=== PATIENT | female | born 1990 | race Caucasian/White ===

== ENCOUNTER 2020-10-23 18:05 | Emergency (ER) | payer MEDICAID, SELFPAY ==
[2020-10-23 18:55] VITALS: BP 112/62; PULSE 72; RESP 18; TEMP 36.9; O2SAT 99; BMI 27.4
[2020-10-23 20:02] LABS: Influenza A PCR NEGATIVE (Negative); Influenza B PCR NEGATIVE (Negative); SARS COV2 PCR INHOUSE NEGATIVE (Negative)
[2020-10-23 20:04] LABS: Resp Syncy Virus RNA Qual PCR POSITIVE (Negative)
--- NOTE | 2020-10-23 21:10 | ED.URI ---
HPI - URI/Sore Throat General Chief Complaint: Upper Respiratory Symptoms Stated Complaint: covid exposure Time Seen by Provider: 10/23/20 21:10 Source: patient Mode of arrival: ambulatory History of Present Illness HPI Narrative: 30-year-old female no significant past medical history presenting to the ED complaining sore throat generalized fatigue requesting COVID-19 testing. Presenting to ED with 3 children, 1 of which has URI symptoms. Patient denies fever, cough, CP/SOB, abdominal pain, nausea/vomiting, recent travel, rash, COVID-19 exposure Related Data Allergies Allergy/AdvReac Type Severity Reaction Status Date / Time latex [LATEX] Allergy Mild RASH Verified 10/23/20 18:54 Latex Allergy Unknown rash Uncoded 06/26/15 00:00 Review of Systems Review of Systems: Constitutional: No Fever, No Chills, +fatigue ENT/Mouth: No Ear Pain, No Nasal Congestion, No Sinus Pain, No Hoarseness, + sore throat, No Rhinorrhea Cardiovascular: No Chest Pain, No SOB Respiratory: No Cough, No Sputum, No Wheezing Gastrointestinal: No Nausea, No Vomiting, No Abdominal pain Musculoskeletal: No joint pain, + Myalgias Skin: No Skin Lesions, No rash Neuro: No Weakness Yes all other systems are reviewed and are negative [facility] Past Medical History Attestation statement: The following information was validated with the patient. Social History Social History Advance Directives: No Advance Directives Information Provided: Yes Patient : No Physical Exam Vital Signs: Vital Signs: Last Vital Signs Temp 98.4 F 10/23/20 18:55 Pulse 72 10/23/20 18:55 Resp 18 10/23/20 18:55 BP 112/62 10/23/20 18:55 Pulse Ox 99 10/23/20 18:55 Body Mass Index 27.4 Const: General: cooperative and healthy appearing Orientation/consciousness: patient oriented x3 Limitations: no limitations HENMT: Head: Yes normal to inspection Ears: hearing grossly normal bilaterally, external ears normal and TM's normal bilaterally General nose exam: Normal external nose present Face and sinus: Yes normal facial exam Mouth: Normal oral and palatal mucosa present and oropharynx normal Throat: Yes posterior oropharynx normal, Yes tonsils normal, Yes uvula midline, No peritonsillar mass, No uvula laterally displaced and No uvular edema Eyes: General: appearance normal, both eyes and all related structures EOM: EOMs intact bilaterally Neck: Neck: Yes normal visual inspection Resp: Effort & Inspection: normal respiratory effort Auscultation: clear to auscultation bilaterally, no rales, no rhonchi and no wheezes Cardio: Rate: regular rate Heart sounds: S1 normal heart sound present and S2 normal heart sound present GI: Inspection: Yes normal to inspection Skin: Rashes: no rashes Wounds: no wounds Neuro: General: patient oriented x3 Gait exam (Neuro): Normal gait present Extrem: General: Yes normal to inspection Course Course Course Narrative: -RSV positive MDM - URI/Sore Throat MDM Narrative Medical decision making narrative: 42-year-old female presenting to the ED complaining of cough, body aches/myalgias, chills, SOB, chest discomfort when coughing, headaches x2 days. On exam VSS, NAD/well-appearing, lungs CTA. Concern for viral syndrome/COVID-19. Plan: COVID-19/RSV/influenza testing Lab Data Labs: Lab Results 10/23/20 Range/Units 19:05 Coronavirus (PCR) NEGATIVE (Negative) Influenza Type A (PCR) NEGATIVE (Negative) Influenza Type B (PCR) NEGATIVE (Negative) RSV RNA Qual (PCR) POSITIVE A (Negative) Discharge Plan Discharge Clinical Impression: Respiratory syncytial virus (RSV) infection Patient Disposition: Home, Self-Care Instructions: Respiratory Syncytial Virus (ED) Additional Instructions: You are RSV positive, this is the cause of the common cold, you tested negative for the flu and COVID-19 It is important for you to rest, stay hydrated, take Tylenol and Motrin at home as needed Please follow-up with her doctor If symptoms persist or worsen, become unbearable, constant worsening shortness breath or chest pain please return to the ED Referrals: Fred Hatfield MD [Primary Care Provider] - 2 days
== END 2020-10-23 22:08 | disposition home or self-care (01) ==
PROVIDERS: Emergency Provider Emergency Medicine; PCP Internal Medicine
DX: J02.9 Acute pharyngitis, unspecified (principal); B97.4 Respiratory syncytial virus as the cause of diseases classified elsewhere; Z20.822 Contact with and (suspected) exposure to COVID-19; M79.10 Myalgia, unspecified site
CPT/HCPCS: 0241U; 36415; 99282; 99283

== ENCOUNTER 2021-01-19 13:06 | Emergency (ER) | payer MEDICAID, SELFPAY ==
--- NOTE | ~2021-01-19 | US_ITS ---
EXAMINATION: US PELVIS CLINICAL INFORMATION: Patient reports although the hCG level is pending at the time of this dictation. Last menstrual period 12/06/2020. Menstrual gestational age 6 weeks 2 days with estimated due date 09/12/2021. COMPARISON: None TECHNIQUE: Transabdominal and transvaginal imaging of the pelvis was performed. FINDINGS: A gravid uterus is identified. A single living intrauterine gestation is identified with a crown-rump length of 2.9 mm corresponding to 6 weeks 0 days. This is concordant with the age by dates of 6 weeks 2 days for an EDC of 09/12/2021. There is a normal heart rate of 126 beats per minute. The right and left ovaries are of normal size and echogenicity measuring 5.0 x 2.9 x 3.5 cm and 2.4 x 1.5 x 2.1 cm respectively. There is no pelvic free fluid. US/US pelvic and transvaginal IMPRESSION: Normal single living intrauterine gestation.
[2021-01-19 13:12] VITALS: BP 124/77; PULSE 99; RESP 18; TEMP 36.6; O2SAT 100; BMI 34.3
--- NOTE | 2021-01-19 15:53 | ED.GENADULT ---
HPI - General Adult General Chief complaint: Vaginal Bleeding Stated complaint: vaginal bleeding quest of misscarriage Time Seen by Provider: 01/19/21 15:09 Source: patient Mode of arrival: ambulatory History of Present Illness HPI narrative: 30-year-old female presenting to the ED complaining of lower abdominal cramping and vaginal spotting since this morning. Admits to positive at home test 3 weeks ago. Reports associated nausea and lightheadedness. Denies any care states appointment is on 01/28. Denies fever, chills, vaginal discharge, flank pain, diarrhea/constipation Onset (ago): day(s) Related Data Allergies Allergy/AdvReac Type Severity Reaction Status Date / Time latex [LATEX] Allergy Mild RASH Verified 10/23/20 18:54 Latex Allergy Unknown rash Uncoded 06/26/15 00:00 Review of Systems Review of Systems: Constitutional: No Fever, No Chills, No Fatigue, No Malaise ENT/Mouth: No Ear Pain, No Nasal Congestion, No sore throat Eyes: No Eye Pain, No Swelling, No Redness, No Discharge Cardiovascular: No Chest Pain, No SOB, No Edema, No Palpitations Respiratory: No Cough, No Dyspnea Gastrointestinal: + Nausea, No Vomiting, No Diarrhea, No Constipation, No Abdominal pain Genitourinary: + vaginal spotting, No Dysuria, No Urinary Frequency, No Hematuria,No Flank Pain, No Urinary Flow Changes, No Hesitancy Musculoskeletal: No joint pain, No Myalgias, No Joint Swelling Skin: No Skin Lesions, No rash Neuro: No Weakness, No Numbness, + lightheadedness, No Headache Yes all other systems are reviewed and are negative [facility] Past Medical History Attestation statement: The following information was validated with the patient. Social History Social History Advance Directives: No Advance Directives Information Provided: No Physical Exam Vital Signs: Vital Signs: Last Vital Signs Temp 98 F 01/19/21 13:12 Pulse 99 01/19/21 13:12 Resp 18 01/19/21 13:12 BP 124/77 01/19/21 13:12 Pulse Ox 100 01/19/21 13:12 Body Mass Index 34.3 Const: General: cooperative, healthy appearing and no acute distress Orientation/consciousness: patient oriented x3 Limitations: no limitations HENMT: Head: Yes normal to inspection Ears: hearing grossly normal bilaterally General nose exam: Normal external nose present Face and sinus: Yes normal facial exam Eyes: General: appearance normal, both eyes and all related structures EOM: EOMs intact bilaterally Neck: Neck: Yes normal visual inspection and Yes no meningeal signs Resp: Effort & Inspection: normal respiratory effort and no respiratory distress Auscultation: clear to auscultation bilaterally Cardio: Rate: regular rate Heart sounds: S1 normal heart sound present and S2 normal heart sound present GI: Inspection: Yes normal to inspection Palpation (GI): Soft to palpation, nontender, no guarding and not rigid : Other: On pelvic scant vaginal bleeding noted, no active hemorrhage, no clots, no CMT. OS closed. + right adnexal tenderness General: Yes no CVA tenderness Back/Spine/Pelvis: Back: no CVA tenderness Skin: Rashes: no rashes Wounds: no wounds Neuro: General: patient oriented x3 and no meningeal signs Gait exam (Neuro): Normal gait present Extrem: General: Yes normal to inspection Course Course Course Narrative: -1700--UA with blood. Urine positive. --ED care transferred to EMANUEL Mendez pending remaining labs and ultrasound. Dispo for results Medical Decision Making [facility] Narrative Medical decision making narrative: 30-year-old female presenting to the ED complaining of lower abdominal cramping and vaginal spotting since this morning. On exam vital signs stable, NAD/nontoxic, abdomen soft/nontender, no CVAT. On pelvic exam and vaginal bleeding noted, no active hemorrhage. No CMT. Right adnexal tenderness. Not exam not consistent with PID. Concern for normal vs threatened / missed vs ectopic. Rule out UTI. Lower concern for appendicitis /diverticulitis/ renal stone Plan: Labs, UA, STI testing, pelvic ultrasound Medical Records Medical records reviewed: Yes I reviewed the patient's medical records. Lab Data Lab results reviewed: Yes I reviewed the patient's lab results. Labs: Lab Results 01/19/21 01/19/21 Range/Units 16:33 16:33 Urine Color STRAW Urine Appearance HAZY Urine pH 7.0 (5.0-8.0) Ur Specific [place] <= 1.005 (1.005-1.025) Urine Protein NEG (NEG-TRACE) MG/DL Urine Glucose (UA) NEG (NEG) MG/DL Urine Ketones NEG (NEG) MG/DL Urine Blood 2+ H (NEG) Urine Nitrite NEG (NEG) Ur Leukocyte Esterase NEG (NEG) Urine RBC 0-2 (0) /HPF Urine WBC 0-2 (0-4) /HPF Ur Squamous Epith Cells 1+ /LPF Urine Bacteria TRACE /LPF Urine Mucus TRACE /LPF Urine Test POSITIVE H (NEGATIVE) Discharge Plan Discharge Clinical Impression: Bleeding in early Patient Disposition: Still a Patient
[2021-01-19 16:41] LABS: Appearance Urine HAZY; Color Urine STRAW; Glucose Urine UA NEG (NEG); Leukocyte Esterase Urine NEG (NEG); Nitrite Urine NEG (NEG); Specific Gravity - Urine <= 1.005 (1.005-1.025); UACC Culture Trigger NO; Urine Blood 2+ (NEG); Urine Ketones NEG (NEG); Urine Protein NEG (NEG-TRACE)
[2021-01-19 16:46] LABS: UPreg QC Valid YES; Urine Pregnancy POSITIVE (NEGATIVE)
[2021-01-19 16:50] LABS: Bacteria Urine TRACE /LPF; Mucus Urine TRACE /LPF; RBC Urine 0-2 /HPF (0); Squamous Epithelial Cell Urine 1+ /LPF; WBC Urine 0-2 /HPF (0-4)
[2021-01-19] MEDS: 0.9 % Sodium Chloride 1,000 ML 999 ML IVCONT (18:05)
[2021-01-19 18:09] LABS: MANUAL DIFF FLAG NO
[2021-01-19 18:10] LABS: Basophils Percent Auto 0.3 % (0-2); Eosinophils Absolute Auto 0.2 X10*3/uL (0.0-0.4); Eosinophils Percent Auto 1.7 % (0-4); Hematocrit 37.6 % (37.0-47.0); Hemoglobin 12.7 g/dl (12.0-16.0); Imm Gran Abs Auto 0.03 X10*3/uL (0.00-0.03); Imm Gran Pct Auto 0.3 % (0.0-0.4); Lymphocytes Absolute Auto 2.4 X10*3/uL (1.2-4.9); Mean Corpuscular HGB Conc 33.8 g/dl (31.0-35.0); Mean Corpuscular Hemoglobin 30.8 pg (27.0-33.0); Mean Corpuscular Volume 91.3 fL (80.0-98.0); Mean Platelet Volume 11.3 fL (9.4-12.3); Monocytes Absolute Auto 0.5 X10*3/uL (0.1-1.2); Neutrophils Percent Auto 68.7 % (45-73); Platelet Count 242 X10*3/uL (160-400); Red Blood Count 4.12 X10*6/uL (4.20-5.50); Red Cell Distribution Width 12.6 % (11.0-16.0); White Blood Count 10.1 X10*3/uL (4.8-10.8)
[2021-01-19 18:26] LABS: Alanine Aminotransferase 13 U/L (0-31); Albumin Level 3.5 g/dL (3.5-5.0); Alkaline Phosphatase 70 U/L (39-117); Anion Gap 9 (12-20); Aspartate Amino Transferase 11 U/L (5-31); Bilirubin Direct < 0.2 mg/dL (0.0-0.5); Bilirubin Total 0.2 mg/dL (0.0-1.0); Blood Urea Nitrogen 6 mg/dL (9-16); Calcium 8.4 mg/dL (8.4-10.2); Carbon Dioxide 24 mmol/L (22-29); Chloride 109 mmol/L (96-108); Creatinine Clr Calc Pharmacy 128.2; Estimated Glomerular Filt Rate > 60; Glucose Random 91 mg/dL (60-115); Lipase 31 U/L (8-78); Potassium 3.9 mmol/L (3.3-5.1); Sodium 138 mmol/L (135-145); Total Protein 6.5 g/dL (6.5-8.0)
[2021-01-19 18:49] LABS: HCG Quantitative 18037 mIU/mL
[2021-01-19 19:26] VITALS: BP 121/57; PULSE 81; RESP 16; TEMP 36.9; O2SAT 100
[2021-01-20 09:37] LABS: BV Int Neg Control Negative (Negative); BV Int Pos Control Positive (Positive)
[2021-01-20 09:42] LABS: CT PCR NOT DETECTED (Not Detect.); NG PCR NOT DETECTED (Not Detect.)
== END 2021-01-19 19:36 | disposition home or self-care (01) ==
PROVIDERS: Physician Assistant; Emergency Provider Emergency Medicine; PCP Internal Medicine
DX: O20.9 Hemorrhage in early pregnancy, unspecified (principal); O23.591 Infection of other part of genital tract in pregnancy, first trimester; Z3A.01 Less than 8 weeks gestation of pregnancy
CPT/HCPCS: 36415; 76830; 76856; 80048; 80076; 81001; 81025; 83690; 83735; 84702; 85025; 86900; 86901; 87480; 87491; 87510; 87591; 87660; 96360; 99284

== ENCOUNTER 2023-05-03 14:02 | Outpatient (REF) | payer MEDICAID, SELFPAY ==
[2023-05-03 14:50] LABS: Basophils Percent Auto 0.3 % (0-2); Eosinophils Absolute Auto 0.1 X10*3/uL (0.0-0.4); Eosinophils Percent Auto 1.8 % (0-4); Hematocrit 40.7 % (37.0-47.0); Imm Gran Abs Auto 0.02 X10*3/uL (0.00-0.03); Imm Gran Pct Auto 0.3 % (0.0-0.4); Lymphocytes Absolute Auto 2.9 X10*3/uL (1.2-4.9); MANUAL DIFF FLAG SCAN; Mean Corpuscular HGB Conc 34.4 g/dl (31.0-35.0); Mean Corpuscular Volume 87.3 fL (80.0-98.0); Mean Platelet Volume 12.2 fL (9.4-12.3); Monocytes Absolute Auto 0.5 X10*3/uL (0.1-1.2); Monocytes Percent Auto 5.9 % (2-11); Neutrophils Absolute Auto 4.4 x10*3/uL (2.0-8.3); Neutrophils Percent Auto 54.7 % (45-73); Platelet Count 264 X10*3/uL (160-400); Red Blood Count 4.66 X10*6/uL (4.20-5.50); Red Cell Distribution Width 12.4 % (11.0-16.0); SCAN SMEAR FLAG 1; White Blood Count 7.9 X10*3/uL (4.8-10.8)
[2023-05-03 15:26] LABS: SLIDE REVIEW VERIFIED
[2023-05-03 15:47] LABS: Alanine Aminotransferase 18 U/L (0-31); Albumin Level 4.1 g/dL (3.5-5.0); Alkaline Phosphatase 68 U/L (39-117); Anion Gap 11 (12-20); Aspartate Amino Transferase 16 U/L (5-31); Bilirubin Total 0.2 mg/dL (0.0-1.0); Blood Urea Nitrogen 10 mg/dL (9-16); Calcium 9.2 mg/dL (8.4-10.2); Carbon Dioxide 24 mmol/L (22-29); Chloride 110 mmol/L (96-108); Cholesterol 109 mg/dL (<200); Estimated Glomerular Filt Rate > 60; Glucose Random 67 mg/dL (60-115); HDL Cholesterol 26 mg/dL (>40); LDL Cholesterol Calculated 64 mg/dL (<100); Magnesium 1.9 mg/dL (1.6-2.6); Potassium 3.1 mmol/L (3.3-5.1); Sodium 142 mmol/L (135-145); Triglycerides 97 mg/dL (<150)
[2023-05-03 15:50] LABS: Vitamin D 25-OH Total 13.9 ng/mL (>30)
[2023-05-06 02:18] LABS: TS Negative Control Passed; TS Panel A 0; TS Panel B 0; TS Positive Control Passed; TSpotTB Negative (Negative)
== END 2023-05-03 14:03 | disposition home or self-care (01) ==
LOC: HO.CHCLDS 14:02
PROVIDERS: Visit Provider Family Medicine
DX: Z11.1 Encounter for screening for respiratory tuberculosis (principal); E66.9 Obesity, unspecified
CPT/HCPCS: 36415; 80053; 80061; 82306; 83735; 85025; 86481

== ENCOUNTER 2024-01-20 15:40 | Outpatient (REF) | payer MEDICAID, SELFPAY ==
[2024-01-21 04:20] LABS: CT PCR NOT DETECTED (Not Detect.); NG PCR NOT DETECTED (Not Detect.)
== END 2024-01-20 15:41 | disposition home or self-care (01) ==
LOC: HO.CHCLNP 15:40
PROVIDERS: Visit Provider Family Medicine
DX: A64 Unspecified sexually transmitted disease (principal)
CPT/HCPCS: 87491; 87591

== ENCOUNTER 2024-01-25 08:47 | Outpatient (REF) | payer MEDICAID, SELFPAY ==
[2024-01-25 14:18] LABS: MANUAL DIFF FLAG NO
[2024-01-25 14:44] LABS: Basophils Percent Auto 0.2 % (0-2); Eosinophils Absolute Auto 0.1 X10*3/uL (0.0-0.4); Eosinophils Percent Auto 1.4 % (0-4); Hematocrit 37.2 % (37.0-47.0); Hemoglobin 12.6 g/dl (12.0-16.0); Imm Gran Abs Auto 0.02 X10*3/uL (0.00-0.03); Imm Gran Pct Auto 0.2 % (0.0-0.4); Lymphocytes Absolute Auto 1.9 X10*3/uL (1.2-4.9); Lymphocytes Percent Auto 23.5 % (20-40); Mean Corpuscular HGB Conc 33.9 g/dl (31.0-35.0); Mean Corpuscular Hemoglobin 30.8 pg (27.0-33.0); Monocytes Absolute Auto 0.4 X10*3/uL (0.1-1.2); Monocytes Percent Auto 4.5 % (2-11); Neutrophils Absolute Auto 5.7 x10*3/uL (2.0-8.3); Neutrophils Percent Auto 70.2 % (45-73); Platelet Count 208 X10*3/uL (160-400); Red Blood Count 4.09 X10*6/uL (4.20-5.50); Red Cell Distribution Width 12.9 % (11.0-16.0); White Blood Count 8.1 X10*3/uL (4.8-10.8)
[2024-01-25 16:00] LABS: Alanine Aminotransferase 12 U/L (0-31); Albumin Level 3.5 g/dL (3.5-5.0); Anion Gap 11 (12-20); Aspartate Amino Transferase 23 U/L (5-31); Bilirubin Total 0.3 mg/dL (0.0-1.0); Blood Urea Nitrogen 7 mg/dL (9-16); Calcium 8.6 mg/dL (8.4-10.2); Carbon Dioxide 23 mmol/L (22-29); Chloride 109 mmol/L (96-108); Cholesterol 129 mg/dL (<200); Estimated Glomerular Filt Rate > 60; Glucose Random 67 mg/dL (60-115); HDL Cholesterol 43 mg/dL (>40); LDL Cholesterol Calculated 74 mg/dL (<100); Potassium 3.6 mmol/L (3.3-5.1); Sodium 139 mmol/L (135-145); Total Protein 6.8 g/dL (6.5-8.0); Triglycerides 64 mg/dL (<150)
[2024-01-25 17:22] LABS: Alkaline Phosphatase 53 U/L (39-117)
[2024-01-26 03:38] LABS: Syphilis Screen Nonreactive (Nonreactive)
[2024-01-26 04:17] LABS: HIV AB/AG Nonreactive (Nonreactive); HIV Num 1 0.07 S/CO (0.00-0.99); ~HepC Num1 0.14 S/CO (0.00-0.79); ~Hepatitis C Antibody Nonreactive (Nonreactive)
== END 2024-01-25 08:48 | disposition home or self-care (01) ==
LOC: HO.CHCLDS 08:47
PROVIDERS: Visit Provider Family Medicine
DX: E66.811 Obesity, class 1 (principal); Z68.34 Body mass index [BMI] 34.0-34.9, adult; A64 Unspecified sexually transmitted disease
CPT/HCPCS: 36415; 80053; 80061; 85025; 86780; 86803; 87389

== ENCOUNTER 2024-01-26 11:26 | Outpatient (REF) | payer MEDICAID, SELFPAY ==
[2024-01-28 11:55] LABS: Bacterial Vaginosis PCR POSITIVE (Negative); Candida Group PCR DETECTED (Not Detect); Candida glab krusei PCR NOT DETECTED (Not Detect); Trichomonas vaginalis PCR NOT DETECTED (Not Detect)
[2024-01-28 14:32] LABS: CT PCR NOT DETECTED (Not Detect.); NG PCR NOT DETECTED (Not Detect.)
== END 2024-01-26 11:27 | disposition home or self-care (01) ==
LOC: HO.LNP 11:26
PROVIDERS: Visit Provider Internal Medicine
DX: N30.01 Acute cystitis with hematuria (principal); N91.0 Primary amenorrhea
CPT/HCPCS: 0352U; 87086; 87491; 87591

== ENCOUNTER 2024-01-27 11:40 | Outpatient (REF) | payer MEDICAID, SELFPAY ==
[2024-01-27 14:11] LABS: MANUAL DIFF FLAG NO
[2024-01-27 14:18] LABS: Basophils Percent Auto 0.3 % (0-2); Eosinophils Absolute Auto 0.1 X10*3/uL (0.0-0.4); Eosinophils Percent Auto 1.5 % (0-4); Hematocrit 37.2 % (37.0-47.0); Hemoglobin 12.7 g/dl (12.0-16.0); Imm Gran Abs Auto 0.03 X10*3/uL (0.00-0.03); Imm Gran Pct Auto 0.3 % (0.0-0.4); Lymphocytes Absolute Auto 1.8 X10*3/uL (1.2-4.9); Lymphocytes Percent Auto 20.9 % (20-40); Mean Corpuscular HGB Conc 34.1 g/dl (31.0-35.0); Mean Corpuscular Hemoglobin 30.5 pg (27.0-33.0); Mean Corpuscular Volume 89.4 fL (80.0-98.0); Monocytes Absolute Auto 0.5 X10*3/uL (0.1-1.2); Neutrophils Absolute Auto 6.1 x10*3/uL (2.0-8.3); Platelet Count 219 X10*3/uL (160-400); Red Blood Count 4.16 X10*6/uL (4.20-5.50); Red Cell Distribution Width 12.7 % (11.0-16.0); White Blood Count 8.7 X10*3/uL (4.8-10.8)
[2024-01-27 14:52] LABS: HCG Quantitative < 2 mIU/mL; TSH reflex Free T4 0.99 uIU/mL (0.32-4.0)
[2024-01-27 15:10] LABS: Erythrocyte Sedimentation Rate 19 MM/HR (0-20)
== END 2024-01-27 11:41 | disposition home or self-care (01) ==
LOC: HO.CHCLDS 11:40
PROVIDERS: Visit Provider Internal Medicine
DX: N30.01 Acute cystitis with hematuria (principal); N91.0 Primary amenorrhea
CPT/HCPCS: 36415; 84443; 84702; 85025; 85652; 87491; 87591

== ENCOUNTER 2024-02-01 14:35 | Outpatient (REF) | payer MEDICAID, SELFPAY ==
[2024-02-06 22:08] LABS: C. trachomatis RNA TMA Not Detected (Not Detected); N. gonorrhoeae RNA TMA Not Detected (Not Detected); Trichomonas (NAAT) Not Detected (Not Detected)
[2024-02-10 13:40] LABS: HPV 16,18/45 See PAP report
== END 2024-02-01 14:36 | disposition home or self-care (01) ==
LOC: HO.LNP 14:35
PROVIDERS: Visit Provider Family Medicine
DX: Z12.4 Encounter for screening for malignant neoplasm of cervix (principal)
CPT/HCPCS: 87491; 87591; 87624; 87661; 88175

== ENCOUNTER 2024-10-09 15:15 | Outpatient (REF) | payer MEDICAID, SELFPAY ==
--- OUTSIDE RECORDS SUMMARY | 2024-10-09 15:19 | XMS_ITS | Encounter Summary ---
Author Organization [employer] Address [address] [place] [address] Care Team Providers Care Physician Allergist Immunologist Name Role Phone Nu Carlisle MD Primary Care Provider [phone] Encounter Details Date Type Department Care Team (Late st Contact Info) Description 07/04/2024 Orders Only [facility] MED & PEDS [address] [place] [id number] Mara Coles Social History Tobacco Use Types Packs/Day Years Used Date Smoking Tobacco: Unknown Depression Answer Date Recorded Patient Health Questionnaire-9 Score 12 05/03/2023 Patient Health Questionnaire-9 Score 12 05/03/2023 Last PHQ-9: Questionnaire Data Not on file 0 05/03/2023 Housing Stability Answer Date Recorded What is your housing situation today? I have giancarlo rosales 06/24/[address] you li ve. Do you have problems with any of the following? None of the above 06/24/2023 Food Insecurity Answer Date Recorded Within the past 12 months, y ou worried that your food would run out before you got money to buy more: Never True 06/24/2023 Within the past 12 months,th e food you bought just didn't last and you didn't have enough money to get more: Never True Transportation Answer Date Recorded In the past 12 months, has l ack of transportation kept you from medical appts, meetings, work or from getting things needed for daily living? No 06/24/2023 Utilities Answer Date Recorded In the past 12 months, has t he electric, gas, oil or water company threatened to shut off services in your home? No 06/24/2023 Depression Answer Date Recorded Patient Health Questionnaire-2 Score 2 05/03/2023 Comments No Sex and Gender Information Value Date Recorded Sex Assigned at Female 01/05/2022 10:39 AM EDT Legal Sex Female 10:39 AM EDT Gender Identity Female 01/05/2022 10:39 AM EDT Sexual Orientation Straight 01/05/2022 10 :39 AM EDT documented as of this encounter Plan of Treatment Not on file documented as of this encounter Procedures Procedure Name Priority Date/Time Associated Diagnosis Comments HPV MRNA E6/E7 REFLEX TO HPV 16, 18/45 Routine 02/01/2024 12:00 AM EST documented in this encounter Results * HPV mRNA E6/E7 w/Reflex to HPV Genotypes 16, 18/45 (02/01/2024 12:00 AM EST) us Historical Provider LAB CYTOLOGY ORDERABLES F inal Result [facility] [address] [place] [address] [phone] documented in this encounter Visit Diagnoses Not on filedocumented in this encounter Additional Health Concerns Assessment Noted Time PHQ-9 Depression Total Score: 12 024 10:46 AM EST documented as of this encounter Care Teams Physician Allergist Immunologist Relationship Specialty Start Date End Date Nu Carlisle MD [address] [place] [address] PCP - General Family Medicine 12/31/20 documented as of this encounter
[2024-10-09 16:14] LABS: MANUAL DIFF FLAG NO
[2024-10-09 16:26] LABS: Hematocrit 37.1 % (37.0-47.0); Hemoglobin 12.6 g/dl (12.0-16.0); Imm Gran Abs Auto 0.02 X10*3/uL (0.00-0.03); Imm Gran Pct Auto 0.2 % (0.0-0.4); Lymphocytes Absolute Auto 2.4 X10*3/uL (1.2-4.9); Mean Corpuscular HGB Conc 34.0 g/dl (31.0-35.0); Mean Corpuscular Hemoglobin 30.8 pg (27.0-33.0); Mean Corpuscular Volume 90.7 fL (80.0-98.0); NRBC Abs Auto 0.000 X10*3/uL (0.0-0.012); NRBC Pct Auto 0.0 /100WBC (0.0-0.2); Platelet Count 220 X10*3/uL (160-400); Red Blood Count 4.09 X10*6/uL (4.20-5.50); White Blood Count 9.1 X10*3/uL (4.8-10.8)
[2024-10-10 08:35] LABS: HIV Num 1 0.06 S/CO (0.00-0.99)
== END 2024-10-09 15:16 | disposition home or self-care (01) ==
LOC: HO.HHCL 15:15
PROVIDERS: PCP Internal Medicine; Visit Provider Internal Medicine
DX: Z11.4 Encounter for screening for human immunodeficiency virus [HIV] (principal); Z11.3 Encounter for screening for infections with a predominantly sexual mode of transmission; N91.0 Primary amenorrhea; R39.9 Unspecified symptoms and signs involving the genitourinary system
CPT/HCPCS: 36415; 84702; 85025; 86592; 87086; 87088; 87186; 87389

== ENCOUNTER 2024-12-28 11:32 | Outpatient (REF) | payer MEDICAID, SELFPAY ==
--- NOTE | ~2024-12-28 | XR_ITS ---
EXAMINATION: XR KNEE, RIGHT CLINICAL INFORMATION: Patient with anterior right knee pain s/p fall this AM COMPARISON: None available. TECHNIQUE: Four views of the right knee. FINDINGS: There is no joint effusion. Joint spaces are preserved. There are no osteophytes. There is a geographic lesion involving the medial metadiaphysis of the proximal tibia, seen posteriorly. It has thin linear sclerotic margins and patchy groundglass density internally, contacting the posterior cortex XR/XR knee RT 4V IMPRESSION: Unremarkable right knee. 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 Electronically signed by: Robert Gomez MD 12/28/2024 11:50 AM EDT
== END 2024-12-28 11:33 | disposition home or self-care (01) ==
LOC: HO.HHCX 11:32
PROVIDERS: Visit Provider Family Medicine
DX: M25.561 Pain in right knee (principal)
CPT/HCPCS: 73564

== ENCOUNTER → 2024-12-28 11:32 | Outpatient (BNV) | payer MEDICAID, SELFPAY | PROVIDERS: Visit Provider Radiology Diagnostic Radiology | DX: M25.561 Pain in right knee (principal); W19.XXXA Unspecified fall, initial encounter | CPT/HCPCS: 73564 ==

== ENCOUNTER 2025-01-05 14:27 | Outpatient (REF) | payer MEDICAID, SELFPAY ==
--- OUTSIDE RECORDS SUMMARY | 2025-01-03 14:20 | XMS_ITS | Encounter Summary ---
Author Organization [employer] Address [address] [place] [address] Care Team Providers Care Materials Recycler Name Role Phone Nu Carlisle MD Primary Care Provider [phone] Reason for Visit * Reason Comments Knee Pain right hip pain Encounter Details Date Type Department Care Team ([facility] st Contact Info) Description 01/03/2025 2:20 PM EDT Office Visit [facility] CH[facility] MED & PEDS [address] [place], [place] [phone] Maritza Wen MD [address] [place], [place] [phone] Right hip pain (Primary Dx); Acute pain of right knee Social History Tobacco Use Types Packs/Day Years [...] AM EDT documented as of this encounter Last Filed Vital Signs Vital Sign Reading Time Taken Comments Blood Pressure 122/88 01/03/2025 2:19 PM EDT Pulse 84 01/03/2025 2:19 PM EDT Temperature 36.3 C (97.3 F) 01/03/2025 2:19 PM EDT Respiratory Rate 20 01/03/2025 2:19 PM EDT Oxygen Saturation - - Inhaled Oxygen Concentration - - Weight 84.6 kg (186 lb 9.6 oz) 01/03/2025 2:19 P M EDT Height 162.6 cm (5' 4 ) 01/03/2025 2:19 PM EDT Body Mass Index 32.03 01/03/2025 2:19 PM EDT documented in this encounter Progress Notes * Maritza Wen MD - 01/03/2025 2:20 PM EDT SUBJECTIVE Christa Freeman is a 34 y.o. female who presents for No chief complaint on file.. Christa Freeman, 34-year-old female - Fell on right side while cleaning cabinet, hit knee and possibly hip - Onset of pain in right knee, right hip, and right lower back following fall - Pain worsens with standing, driving, and household activities - Reports numbness and pain in right lower back and right hip - Pain persists during sleep, requires changing position to avoid discomfort - Taking ibuprofen once daily, provides partial relief - Denies skin rash The note from triage was reviewed: Pt seen by Dr. Hensley 12/28/24 for right knee pain s/p mechanical fall, no fx noted. Today pt reportsongoing knee pain, reports knee still slightly swollen but right hip pain is bothering her more. She is taking ibuprofen to moderate relief but is concerned because there was not any imaging done of her hip and it's bothering her more so. She states the pain is unimproved from when she saw Dr. Hensley 12/28/24 and has trouble walking and working. She is requesting re- evaluation for this pain. Problem List[1] Allergies[2] Medications Ordered Prior to Encounter[3] Review of Systems Constitutional: Negative for chills, diaphoresis and fatigue. Respiratory: Negative for cough, shortness of breath and stridor. Cardiovascular: Negative for leg swelling. Gastrointestinal: Negative for blood in stool, constipation and diarrhea. Musculoskeletal: Positive for back pain. Negative for gait problem and joint swelling. Right knee and hip pain OBJECTIVE Vitals: 01/03/25 1419 BP: 122/88 BP Location: Left arm Patient Position: Sitting BP Cuff Size: Adult Pulse: 84 Resp: 20 Temp: 97.3 ??F (36.3 ??C) TempSrc: Oral Weight: 186 lb 9.6 oz (84.6 kg) Height: 5' 4 (1.626 m) Physical Exam Constitutional: General: She is not in acute distress. Appearance: Normal appearance. She is not ill-appearing, toxic-appearing or diaphoretic. Pulmonary: Effort: Pulmonary effort is normal. Musculoskeletal: Lumbar back: Tenderness present. Right knee: No erythema, ecchymosis or lacerations. Normal range of motion. Tenderness present. Neurological: Mental Status: She is alert. Assessment/Plan Assessment/Plan Diagnoses and all orders for this visit: Right hip pain - XR HIP PAIN PROTOCOL RIGHT; Future - ibuprofen 800 MG tablet; Take 1 tablet (800 mg) by mouth 2 times daily. Acute pain of right knee Right hip and knee pain post-fall: - Pain in the right hip and knee following a fall. Differential diagnosis includes sacroiliitis andcontusion of soft tissue. Sacroiliac joint inflammation considered due to pain on palpation and location of symptoms. - Ordered X-ray of the right hip and sacroiliac joint to evaluate for sacroiliitis and other pathology. Increased ibuprofen dose to 800 mg twice daily with food and adequate hydration. Advised use ofwarm compresses to promote healing. Referral to commercial collections specialist if imaging does not reveal sac roiliitis or if symptoms persist. This note was drafted using Ambient (AI) technology. The patient/patient's guardian has been informed and has consented to the use of this technology: Yes [1] Patient Active Problem List Diagnosis Obesity (BMI 30-39.9) Asthma Lipoma of back Depression Current moderate episode of major depressive disorder without prior episode (CMS/HCC) (HCC) Anxiety Primary insomnia Physical exam, annual Intractable migraine without aura and with status migrainosus STD (sexually transmitted disease) Class 1 obesity with body mass index (BMI) of 34.0 to 34.9 in adult Nonintractable headache Delayed menses Acute cystitis with hematuria Pain of right hip joint Cervical cancer screening [2] Allergies Allergen Reactions Citrullus Vulgaris Anaphylaxis Latex Hives Watermelon Flavoring Agent (Non-Screening) [3] Current Outpatient Medications on File Prior to Visit Medication Sig Dispense Refill albuterol 108 (90 Base) MCG/ACT inhaler Inhale 2 puffs every 4 (four) hours if needed for wheezing.18 g 5 buPROPion (Wellbutrin) 75 MG tablet Take 1 tablet (75 mg) by mouth 2 times daily. 60 tablet 2 ergocalciferol (Vitamin D2) 1.25 MG (30143 UT) capsule Take 1 capsule (1.25 mg) by mouth 1 (one) time per week. 12 capsule 0 fluticasone furoate (Arnuity Ellipta) 100 MCG/ACT inhaler Inhale 1 puff Once per day. Rinse mouth with water after use to reduce aftertaste and incidence of candidiasis. Do not swallow. 1 each 11 ibuprofen 600 MG tablet Take 1 tablet (600 mg) by mouth every 8 (eight) hours if needed for moderate pain or fever. 30 tablet 0 phentermine 15 MG capsule Take 1 capsule (15 mg) by mouth before breakfast. 28 capsule 2 propranolol LA (Inderal LA) 80 MG 24 hr capsule Take 1 capsule (80 mg) by mouth Once per day. Do not crush, chew, or split. 30 capsule 11 SUMAtriptan (Imitrex) 100 MG tablet Take 1 tablet (100 mg) by mouth 1 (one) time if needed for migraine for up to 27 doses. 9 tablet 2 topiramate (Topamax) 50 MG tablet Take 1 tablet (50 mg) by mouth at bedtime. 90 tablet 1 traZODone (Desyrel) 50 MG tablet Take 1 tablet (50 mg) by mouth at bedtime. 90 tablet 0 No current facility-administered medications on file prior to visit. documented in this encounter Plan of Treatment Scheduled Orders Name Type Priority Associated Diagnoses Orde r Schedule XR HIP PAIN PROTOCOL RIGHT Imaging Routine Right hip pain Expected: 01/03/2025, Expires: 01/03/2026 documented as of this encounter Visit Diagnoses Diagnosis Right hip pain- Primary Pain in joint, pelvic region and thigh Acute pain of right knee documented in this encounter Additional Health Concerns Assessment Noted Time PHQ-9 Depression Total Score: 12 024 10:46 AM EST documented as of this encounter Care Teams Materials Recycler Relationship Specialty Start Date End Date Nu Carlisle MD [address] [place] [phone] PCP - General Family Medicine 12/31/20 documented as of this encounter
--- NOTE | ~2025-01-05 | XR_ITS ---
EXAMINATION: XR HIP, RIGHT CLINICAL INFORMATION: PAIN COMPARISON: None available. TECHNIQUE: AP and oblique views of the right hip. FINDINGS: No acute cortical disruption or malalignment. No lytic or blastic lesions. There is preservation of the joint space. No metallic or radiopaque foreign body. No subcutaneous emphysema. No vascular calcifications. XR/XR hip RT min 2V IMPRESSION: Normal x-ray, right hip. Electronically signed by: Kermit Spears MD 01/05/2025 03:42 PM EDT
--- OUTSIDE RECORDS SUMMARY | 2025-01-05 15:04 | XMS_ITS | Encounter Summary ---
Author Organization [employer] Address [address] [facility] [facility] [address] [place] [address] Care Team Providers Care Electrical Logger Name Role Phone Nu Carlisle MD Primary Care Provider [phone] Reason for Visit * Reason Onset Date Comments Med Refill 06/16/2024 Encounter Details Date Type Department Care Team ([facility] st Contact Info) Description 06/16/2024 Refill [facility] [address] [place], [place] [phone] Maritza Wen MD [address] [facility] [place] [phone] Social History Tobacco Use Types Packs/Day Years [...] on file documented as of this encounter Visit Diagnoses Not on filedocumented in this encounter Additional Health Concerns Assessment Noted Time PHQ-9 Depression Total Score: 12 024 10:46 AM EST documented as of this encounter Care Teams Electrical Logger Relationship Specialty Start Date End Date Nu Carlisle MD [address] [place] [address] PCP - General Family Medicine 12/31/20 documented as of this encounter
--- OUTSIDE RECORDS SUMMARY | 2025-01-05 15:04 | XMS_ITS | Encounter Summary ---
Author Organization [employer] Address [address] [place] [address] Care Team Providers Care Shovel Engineer Name Role Phone Nu Carlisle MD Primary Care Provider [phone] Encounter Details Date Type Department Care Team (Late st Contact Info) Description 07/04/2024 Orders Only [facility] MED & PEDS [address] [place] [phone] Mara Coles Social History Tobacco Use Types [...] Provider LAB CYTOLOGY ORDERABLES F inal Result [facility] [address] [place] [address] [phone] documented in this encounter Visit Diagnoses Not on filedocumented in this encounter Additional Health Concerns Assessment Noted Time PHQ-9 Depression Total Score: 12 024 10:46 AM EST documented as of this encounter Care Teams Shovel Engineer Relationship Specialty Start Date End Date Nu Carlisle MD [address] [place] [address] PCP - General Family Medicine 12/31/20 documented as of this encounter
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
--- OUTSIDE RECORDS SUMMARY | 2025-01-05 15:05 | XMS_ITS | Encounter Summary ---
Author Organization [employer] Address [address] [facility] [address] [place] [address] Care Team Providers Care Manager Technical Support Name Role Phone Nu Carlisle MD Primary Care Provider [phone] Encounter Details Date Type Department Care Team ([facility] st Contact Info) Description 10/11/2024 Orders Only [facility] [address] [place], [place] [phone] Maritza Wen MD [address] [place] [address] Social History Tobacco Use Types Packs/Day Years [...] documented as of this encounter Care Teams Manager Technical Support Relationship Specialty Start Date End Date Nu Carlisle MD [address] [place] [address] PCP - General Family Medicine 12/31/20 documented as of this encounter
--- OUTSIDE RECORDS SUMMARY | 2025-01-05 15:05 | XMS_ITS | Encounter Summary ---
Author Organization [employer] Address [address] [facility] [address] [place] [address] Care Team Providers Care Machine Umbrella Tipper Name Role Phone Nu Carlisle MD Primary Care Provider [phone] Reason for Visit * Reason Onset Date Comments Appointment Request 12/21/2023 Encounter Details Date Type Department Care Team ([facility] st Contact Info) Description 12/21/2023 Telephone [facility]S [address] [place], [place] [phone] Nu Carlisle MD [address] [place], [place] [phone] Appointment Request Social History Tobacco Use Types Packs/Day Years [...] Patient Health Questionnaire-2 Score 2 05/03/2023 Comments Unknown Sex and Gender Information Value Date Recorded Sex Assigned at Female 01/05/2022 10:39 AM EDT Legal Sex Female 10:39 AM EDT Gender Identity Female 01/05/2022 10:39 AM EDT Sexual Orientation Straight 01/05/2022 10 :39 AM EDT documented as of this encounter Miscellaneous Notes * Telephone Encounter - Lisa Jacob - 12/21/2023 2:05 PM EDT Tc from pt requesting office visit. No availability. Pt advised will send a message. documented in this encounter Plan of Treatment Not on file documented as of this encounter Visit Diagnoses Not on filedocumented in this encounter Additional Health Concerns Assessment Noted Time PHQ-9 Depression Total Score: 12 024 10:46 AM EST documented as of this encounter Care Teams Machine Umbrella Tipper Relationship Specialty Start Date End Date Nu Carlisle MD [address] [place] [address] PCP - General Family Medicine 12/31/20 documented as of this encounter
--- OUTSIDE RECORDS SUMMARY | 2025-01-05 15:05 | XMS_ITS | Encounter Summary ---
Author Organization [employer] Address [address] [facility] [address] [place] [address] Care Team Providers Care Service Planner Name Role Phone Nu Carlisle MD Primary Care Provider [phone] Reason for Visit * Reason Comments Med Refill Encounter Details Date Type Department Care Team (Late st Contact Info) Description 12/30/2024 Refill [facility] [address] [place] [address] Maritza Wen MD [address] [facility] [place], [place] [phone] Social History Tobacco Use Types Packs/Day Years [...] documented as of this encounter Care Teams Service Planner Relationship Specialty Start Date End Date Nu Carlisle MD [address] [place] [address] PCP - General Family Medicine 12/31/20 documented as of this encounter
--- OUTSIDE RECORDS SUMMARY | 2025-01-05 15:05 | XMS_ITS | Encounter Summary ---
Author Organization [employer] Address [address] [facility] [address] [place] [address] Care Team Providers Care Supervisor Powder And Primer Canning Name Role Phone Nu Carlisle MD Primary Care Provider [phone] Encounter Details Date Type Department Care Team (Latest Contact Info) Description 01/03/2025 Travel Social History Tobacco Use Types Packs/Day Years [...] documented as of this encounter Care Teams Supervisor Powder [employer] Canning Relationship Specialty Start Date End Date Nu Carlisle MD [address] [place] [address] PCP - General Family Medicine 12/31/20 documented as of this encounter
--- OUTSIDE RECORDS SUMMARY | 2025-01-05 15:05 | XMS_ITS | Encounter Summary ---
Author Organization [employer] Address [address] [facility] 7[address] [place] [address] Care Team Providers Care Sand Slinger Operator Name Role Phone Nu Carlisle MD Primary Care Provider [phone] Reason for Visit * Reason Onset Date Comments Nurse Triage 01/01/2025 Encounter Details Date Type Department Care Team ([facility] st Contact Info) Description 01/01/2025 Telephone C [facility] [address] [place] [address] Nu Carlisle MD [address] [place], [place] [phone] Nurse Triage Social History Tobacco Use Types Packs/Day Years [...] encounter Miscellaneous Notes * Telephone Encounter - Melissa Islas RN - 01/01/2025 2:41 PM EDT Pt seen by Dr. Hensley 12/28/24 for right knee pain s/p mechanical fall, no fx noted. Today pt reports ongoing knee pain, reports knee still slightly swollen but right hip pain is bothering her more. Sheis taking ibuprofen to moderate relief but is concerned because there was not any imaging done of her hip and it's bothering her more so. She states the pain is unimproved from when she saw Dr. Hensley 12/28/24 and has trouble walking and working. She is requesting re- evaluation for this pain. Scheduled tomorrow [facility], educatedper Dr. Hensley's note on RICE for knee and hip, educated on reasons to callback. Pt verbalized understanding. Protocol Used: Knee Pain (Adult) Protocol-Based Disposition: See in Office or Video Visit within 3 Days Video visit offer not recorded Positive Triage Question: * Moderate pain (e.g., symptoms interfere with work or school, limping) and present > 3 days * All higher-acuity triage questions were negative Care Advice Discussed: * Reassurance and Education - Knee Pain * Pain Medicines * Reasons To Call Back - Severe pain lasts more than 2 hours after pain medicine - Moderate pain (interferes with normal activities, limping) lasts over 3 days - Mild pain lasts over 7 days - Signs of infection occur (spreading redness, warmth, fever) - You become worse * Telephone Encounter - Moshe Murphy - 01/01/2025 1:02 PM EDT Symptom: Knee Pain - Not From Injury Outcome: Schedule an urgent appointment (within 1 hour) or talk to a nurse or provider soon Reason: Severe pain now The caller accepted this outcome. Pt in urgent care 12/28 Contact pt at [phone] (belarusian) documented in this encounter Plan of Treatment Not on file documented as of this encounter Visit Diagnoses Not on filedocumented in this encounter Additional Health Concerns Assessment Noted Time PHQ-9 Depression Total Score: 12 024 10:46 AM EST documented as of this encounter Care Teams Sand Slinger Operator Relationship Specialty Start Date End Date Nu Carlisle MD [address] [place] [address] PCP - General Family Medicine 12/31/20 documented as of this encounter
== END 2025-01-05 14:28 | disposition home or self-care (01) ==
LOC: HO.HHCX 14:27
PROVIDERS: PCP Family Medicine; Visit Provider Internal Medicine
DX: M25.551 Pain in right hip (principal)
CPT/HCPCS: 73502

== ENCOUNTER → 2025-01-05 15:30 | Outpatient (BNV) | payer MEDICAID, SELFPAY | PROVIDERS: PCP Family Medicine; Visit Provider Radiology Diagnostic Radiology | DX: M25.551 Pain in right hip (principal) | CPT/HCPCS: 73502 ==